=== PATIENT | female | born 1970 | race Caucasian/White ===

== ENCOUNTER 2020-11-17 06:06 | Emergency (ER) | payer OTHER, SELFPAY ==
--- NOTE | ~2020-11-17 | XR_ITS ---
EXAMINATION: LEFT HUMERUS AND LEFT SHOULDER. CLINICAL INFORMATION: Fall and pain. COMPARISON: None TECHNIQUE: 2 views left humerus and 3 views left shoulder. FINDINGS: Left humerus: There is comminuted surgical neck fracture left humerus with extension to the greater tuberosity. There is no dislocation. Rest the left humerus is normal. Left shoulder: Left AC joint, left scapula and the visualized left upper ribs are normal. There is a comminuted surgical neck fracture left humerus with extension to the greater tuberosity. There is no dislocation. Minimal soft tissue swelling noted. XR/XR humerus LT IMPRESSION: Comminuted left humeral surgical neck fracture with extension to the greater tuberosity. No dislocation.
--- NOTE | ~2020-11-17 | XR_ITS ---
EXAMINATION: LEFT HUMERUS AND LEFT SHOULDER. CLINICAL INFORMATION: Fall and pain. COMPARISON: None TECHNIQUE: 2 views left humerus and 3 views left shoulder. FINDINGS: Left humerus: There is comminuted surgical neck fracture left humerus with extension to the greater tuberosity. There is no dislocation. Rest the left humerus is normal. Left shoulder: Left AC joint, left scapula and the visualized left upper ribs are normal. There is a comminuted surgical neck fracture left humerus with extension to the greater tuberosity. There is no dislocation. Minimal soft tissue swelling noted. XR/XR shoulder LT min 2V IMPRESSION: Comminuted left humeral surgical neck fracture with extension to the greater tuberosity. No dislocation.
[2020-11-17 06:23] VITALS: BP 130/89; PULSE 76; RESP 20; TEMP 36.7; O2SAT 98; BMI 35.6
--- NOTE | 2020-11-17 07:02 | ED_ITS ---
HPI - Extremity Problem General Chief complaint: Extremity Injury, Upper Stated complaint: Fall/Work Inj Time Seen by Provider: 11/17/20 07:02 Source: patient Mode of arrival: EMS Limitations: no limitations History of Present Illness HPI Narrative: Tripped over a palate and landed on an extended arm Complaint: extremity pain and extremity swelling Onset (ago): minute(s) Pain Consistency: constant Location: left and upper extremity Severity scale (1-10): 7 Quality: sharp Radiation: none Relieving factors: nothing Exacerbating factors: range of motion Associated symptoms: denies other symptoms Related Data Previous Rx's Medication Instructions Recorded naproxen [Naprosyn] 500 mg PO BID #20 tab 11/17/20 Allergies Allergy/AdvReac Type Severity Reaction Status Date / Time No Known Allergies Allergy Verified 11/17/20 06:25 Review of Systems Constitutional: Constitutional: Reports no additional constitutional complaints Eyes: Eyes: Reports no additional eye complaints ENT: Denies dizziness Cardiovascular: Cardiovascular: Reports no additional cardiovascular complaints Respiratory: Respiratory: Reports as per HPI Gastrointestinal: Gastrointestinal: Reports no additional gastrointestinal complaints Genitourinary: Genitourinary: Reports no additional female genitourinary complaints Musculoskeletal: Musculoskeletal: Reports no additional musculoskeletal complaints Integumentary/Breasts: Skin/Breast: Denies rash Neurologic: Reports system reviewed and no additional complaints, except as documented, Denies dizziness and Denies Sensory deficit (Neuro) Psychiatric: Psychiatric: Denies anxiety [facility] Social History Social History Advance Directives: No Advance Directives Information Provided: Yes Patient : No Physical Exam Vital Signs: Vital Signs: Last Vital Signs Temp 98.0 F 11/17/20 08:00 Pulse 77 11/17/20 08:00 Resp 16 11/17/20 08:00 BP 122/71 11/17/20 08:00 Pulse Ox 99 11/17/20 08:00 Body Mass Index 35.6 Const: General: healthy appearing Nutritional Appearance: average body habitus Orientation/consciousness: oriented to person and patient oriented x3 Limitations: no limitations HENMT: Head: Yes normal to inspection Ears: external ears normal General nose exam: Normal external nose present Mouth: Normal oral and palatal mucosa present and oropharynx normal Throat: Yes posterior oropharynx normal Eyes: General: appearance normal, both eyes and all related structures Neck: Other: supple Neck: Yes normal visual inspection Chest: Chest palpation & inspection: normal inspection of the chest Resp: Auscultation: clear to auscultation bilaterally Cardio: Jugular venous distension: no JVD Rate: regular rate Rhythm: regular rhythm Heart sounds: S1 normal heart sound present and S2 normal heart sound present GI: Inspection: Yes normal to inspection Palpation (GI): Soft to palpation, nontender and No hepatosplenomegaly present Auscultation: normal bowel sounds : General: Yes no CVA tenderness Back/Spine/Pelvis: Back: no CVA tenderness Skin: General skin exam: no rashes or lesions noted Neuro: General: oriented to person and patient oriented x3 Cranial nerves: Yes CN's II-XII intact bilaterally Motor exam (neuro): 5/5 motor strength present throughout Sensory Exam: No Sensory deficit (Neuro) Extrem: Other: left shoulder with tenderness Psych: Appearance: grossly normal Course Reevaluation(s) Reevaluation #1: Discussed with Mayra of ortho, sling for now and see how it heals Time: 09:31 MDM - Extremity (Nontraumatic) Lab Data Labs: Lab Results 11/17/20 11/17/20 Range/Units 07:27 07:27 Urine Opiates Screen Not Detected (Not Detect) Ur Barbiturates Screen Not Detected (Not Detect) Ur Phencyclidine Scrn Not Detected (Not Detect) Ur Amphetamines Screen Not Detected (Not Detect) U Benzodiazepines Scrn Not Detected (Not Detect) Urine Cocaine Screen Not Detected (Not Detect) U Marijuana (THC) Screen Not Detected (Not Detect) Ethyl Alcohol < 10 mg/dL Imaging Data shoulder: Radiologist's impression: IMPRESSION: Comminuted left humeral surgical neck fracture with extension to the greater tuberosity. No dislocation. Discharge Plan Discharge Clinical Impression: Fracture of shoulder Qualifiers: Encounter type: initial encounter Fracture type: closed Laterality: left Qualified Code(s): S42.92XA - Fracture of left shoulder girdle, part unspecified, initial encounter for closed fracture Patient Disposition: Home, Self-Care Instructions: Arm Fracture in Adults (ED) Additional Instructions: must follow up with workman's comp doctor, call today Prescriptions: New naproxen [Naprosyn] 500 mg tablet 500 mg PO BID Qty: 20 RF: 0 Referrals: Rosa Hobson PA-C [Phys[facility]] - 10 days
[2020-11-17] MEDS: Ketorolac Tromethamine 60 MG/2 ML VIAL IM (07:10)
[2020-11-17 07:57] LABS: Amphetamine Screen Urine Not Detected (Not Detect); Barbiturates, Urine Not Detected (Not Detect); Benzodiazepines Screen Urine Not Detected (Not Detect); Cannabinoid Screen Urine Not Detected (Not Detect); Cocaine Screen Urine Not Detected (Not Detect); Opiate Screen Urine Not Detected (Not Detect); Phencyclidine Screen Urine Not Detected (Not Detect)
[2020-11-17 08:00] VITALS: BP 122/71; PULSE 77; RESP 16; TEMP 36.7; O2SAT 99
[2020-11-17 08:20] LABS: Ethanol < 10 mg/dL
== END 2020-11-17 10:10 | disposition home or self-care (01) ==
PROVIDERS: Emergency Provider Emergency Medicine; PCP Internal Medicine
DX: S42.212A Unspecified displaced fracture of surgical neck of left humerus, initial encounter for closed fracture (principal); W01.0XXA Fall on same level from slipping, tripping and stumbling without subsequent striking against object, initial encounter; Y93.9 Activity, unspecified; Y92.9 Unspecified place or not applicable; Y99.0 Civilian activity done for income or pay
CPT/HCPCS: 36415; 73030; 73060; 80307; 82077; 96372; 99284; J1885